=== PATIENT | male | born 1930 | race Caucasian/White ===

== ENCOUNTER 2017-08-02 06:02 | Observation (INO) | payer MEDICARE ==
[~2017-08-02] VITALS: Ht 170.2 cm; Wt 71.8 kg
[2017-08-02] MEDS: ASPIRIN 81 MG TABLET CHEW PO ONE ×2 (06:30→07:46)
[2017-08-02] MEDS ORDERED: SODIUM CHLORIDE FLUSH 10ML SYR IVF ONE (06:30)
[2017-08-02] MEDS ORDERED: PREG75CA PO (06:38)
[2017-08-02] MEDS ORDERED: LEVO100T5 PO (06:38)
[2017-08-02] MEDS ORDERED: APIX5TAB PO (06:38)
[2017-08-02] MEDS ORDERED: POTA10TA31 PO (06:38)
[2017-08-02] MEDS ORDERED: FURO40TA6 PO (06:38)
[2017-08-02] MEDS ORDERED: HUM100VI6 SQ-INSULIN (06:38)
[2017-08-02] MEDS ORDERED: INSU100V12 SQ-INSULIN (06:38)
[2017-08-02] MEDS ORDERED: CLOP75TA52 PO (06:38)
[2017-08-02] MEDS ORDERED: GLIP5TAB10 PO (06:38)
[2017-08-02] MEDS ORDERED: LOVA20TA2 PO (06:38)
[2017-08-02] MEDS ORDERED: BRIM5DRO3 EACHEYE (06:49)
[2017-08-02] MEDS ORDERED: DORZ10DR7 EACHEYE (06:49)
[2017-08-02] MEDS ORDERED: LATA2.5D3 RIGHTEYE (06:49)
[2017-08-02] MEDS ORDERED: PRED5DRO2 LEFTEYE (06:49)
[2017-08-02] MEDS ORDERED: ASPIRIN 81 MG TABLET CHEW ONE (06:56)
[2017-08-02 07:09] LABS: HEMATOCRIT 26.5 % (39.2-51.8); HEMOGLOBIN 8.4 g/dL (13.7-18.0); WHITE BLOOD COUNT 10.1 x10^3/uL (3.4-10)
[2017-08-02 07:23] LABS: BLOOD UREA NITROGEN 55 mg/dL (7-18)
[2017-08-02 07:30] LABS: ASPARTATE AMINO TRANSFERASE 398 U/L (15-37); IS PT STATUS REG ER OR PRE ER? YES
[2017-08-02] MEDS ORDERED: SODIUM CHLORIDE FLUSH 10ML SYR IVF PRN (09:00)
[2017-08-02] MEDS ORDERED: FUROSEMIDE 20 MG/2 ML IV SCH (11:00)
[2017-08-02] MEDS ORDERED: BRIMONIDINE TART. OPHTH 0.2%, 5ML EACHEYE SCH ×2 (11:00→18:46)
[2017-08-02 11:17] LABS: TOTAL IRON BINDING CAPACITY 423 mcg/dL (250-450)
[2017-08-02 11:30] LABS: IS PT STATUS REG ER OR PRE ER? YES
[2017-08-02] MEDS ORDERED: POLYETHYLENE GLYCOL 17 GM PACKET PO PRN (11:30)
[2017-08-02] MEDS ORDERED: HYDROcodone/APAP 5/325 TABLET PO PRN (11:30)
[2017-08-02] MEDS ORDERED: GUAIFENESIN/DM 200-20MG, 10ML UDC PO PRN (11:30)
[2017-08-02] MEDS ORDERED: LABETALOL 5MG/ML, 20ML IVPush PRN (11:30)
[2017-08-02] MEDS ORDERED: morphine SULFATE 10 MG/ML, 1ML IVPush PRN (11:30)
[2017-08-02] MEDS ORDERED: ONDANSETRON ODT 4 MG PO PRN (11:30)
[2017-08-02] MEDS ORDERED: ONDANSETRON 2MG/ML, 2ML IVPush PRN (11:30)
[2017-08-02 11:43] LABS: FERRITIN 21.9 ng/mL (26-388)
[2017-08-02 12:05] VITALS: BP 105/68
[2017-08-02] MEDS ORDERED: [UNRECOGNIZED DRUG - REMARK] MC SCH (12:30)
[2017-08-02 14:54] VITALS: BP 108/68
[2017-08-02] MEDS ORDERED: PREGABALIN 75 MG CAPSULE PO SCH (16:00)
[2017-08-02 16:56] LABS: IS PT STATUS REG ER OR PRE ER? NO
[2017-08-02 19:43] VITALS: BP 106/64
[2017-08-02] MEDS ORDERED: APIXABAN 5 MG TABLET PO SCH (21:00)
[2017-08-02] MEDS ORDERED: INSULIN ASPART 70/30, VIAL SQ-INSULIN SCH (21:00)
[2017-08-02] MEDS ORDERED: APIXABAN 2.5 MG TABLET PO SCH (21:00)
[2017-08-02] MEDS ORDERED: TEMPLATE NON-FORMULARY MED. (Dorzolamide Hcl/Timolol Maleat (Dorzolamide-Timolol Eye Drops EACHEYE SCH (21:00)
[2017-08-02] MEDS ORDERED: TEMPLATE NON-FORMULARY MED. (Lovastatin** 20 MG) PO SCH (21:00)
[2017-08-02] MEDS ORDERED: LATANOPROST OPHTH 0.005%, 2.5ML RIGHTEYE SCH (21:00)
[2017-08-03] MEDS ORDERED: CLOPIDOGREL 75 MG TABLET PO SCH (09:00)
[2017-08-03] MEDS ORDERED: predniSOLONE OPHTH 0.125%, 5ML LEFTEYE SCH (09:00)
[2017-08-03] MEDS ORDERED: LEVOTHYROXINE 100 MCG TABLET PO SCH (09:00)
[2017-08-03] MEDS ORDERED: IRON SUCROSE COMPLEX 100MG/5ML IV SCH (09:00)
[2017-08-03] MEDS ORDERED: SENNA/DOCUSATE TABLET PO SCH (09:00)
== END 2017-08-03 03:06 ==
LOC: ED 08:57 → INTOOBSV 08:58 → EDIP 08:58 → ED 09:07 → 5SO 11:48
PROVIDERS: ADMIT Family Medicine; ATTEND Family Medicine
DX: R07.89 Other chest pain (principal); E03.9 Hypothyroidism, unspecified; E10.319 Type 1 diabetes mellitus with unspecified diabetic retinopathy without macular edema; E10.40 Type 1 diabetes mellitus with diabetic neuropathy, unspecified; E10.65 Type 1 diabetes mellitus with hyperglycemia; E78.5 Hyperlipidemia, unspecified; E87.1 Hypo-osmolality and hyponatremia; E11.22 Type 2 diabetes mellitus with diabetic chronic kidney disease; I13.0 Hypertensive heart and chronic kidney disease with heart failure and stage 1 through stage 4 chronic kidney disease, or unspecified chronic kidney disease; N18.9 Chronic kidney disease, unspecified; I50.9 Heart failure, unspecified; I25.2 Old myocardial infarction; I25.10 Atherosclerotic heart disease of native coronary artery without angina pectoris; D63.1 Anemia in chronic kidney disease; D68.69 Other thrombophilia; I48.91 Unspecified atrial fibrillation; E87.2 Acidosis; R79.1 Abnormal coagulation profile; Z79.4 Long term (current) use of insulin; Z95.0 Presence of cardiac pacemaker
CPT/HCPCS: 36415; 71010; 80053; 80307; 82010; 82607; 82728; 82746; 82800; 82962; 83036; 83540; 83550; 83605; 83690; 83735; 83880; 84439; 84443; 84484; 85025; 85610; 85730; 86850; 86900; 87040; 93005; 93306; 96374; 99285; G0378; J1815; J1940; G0479